=== PATIENT | female | born 1950 | race African-American/Black ===

== ENCOUNTER 2017-04-06 09:25 | Emergency (ER) | payer SELFPAY ==
[~2017-04-06] VITALS: Ht 162.6 cm; Wt 64.0 kg
[2017-04-06 10:43] VITALS: BP 142/74
== END 2017-04-06 10:54 | disposition home or self-care (01) ==
LOC: ER 09:42
DX: I95.1 Orthostatic hypotension (principal)
CPT/HCPCS: 93005; 99283; Z7610